=== PATIENT | male | born 1975 | race African-American/Black ===

== ENCOUNTER 2021-12-18 03:29 | Emergency (ER) | payer SELFPAY ==
[~2021-12-18] VITALS: Ht 177.8 cm; Wt 81.6 kg
--- NOTE | 2021-12-18 07:40 | NUR ---
PT WAS TRAIGED BY POWER SUPERINTENDENT BIBRA 40 UNWILLING TO ANSWER ANY QUESTIONS.MAIN COMPLAINT WAS WANTING MORPHINE FOR PAIN PER TRIAGE NOTES. UPON ARRIVAL HE WAS SITTING IN THE TRIAGE CHAIR REFUSING TO GIVE HIS NAME, REFUSING SOCIAL SERVICE, AND REFUSING HELP. STATED HE WANTED TO SLEEP, PT HAD STEADY GAIT WHEN AMBULATING. PT DISCHARGED FROM THE FACILITY IN STABLE CONDITION.
[2021-12-18 08:04] VITALS: BP 138/64
== END 2021-12-18 08:04 | disposition home or self-care (01) ==
LOC: ER 03:32
DX: R45.1 Restlessness and agitation (principal); Z88.5 Allergy status to narcotic agent